=== PATIENT | female | born 1955 | race Caucasian/White ===

== ENCOUNTER → 2018-04-30 07:35 | Outpatient (CLI) | payer OTHER, SELFPAY ==
--- NOTE | 2018-04-30 07:35 | DT_ITS ---
This patient was seen during an EMR downtime April 27, 2018 - May 04, 2018. This patient may have a combination of paper and electronic documentation or all paper documentation. All documentation is viewable within the e-chart portion of Healthcare IT for each patient visit.
[2018-05-05 01:39] LABS: ALB/GLOB Ratio 1.1 RATIO (0.9-2.4); Albumin, Serum 3.8 g/dL (3.2-5.0); BUN 19 mg/dL (7-18); BUN/Creat Ratio 23.8 RATIO (10-20); EST Glomerular Filtration Rate 78 mL/min (>60); Est Glom Filt Rate - Afr Amer 95 mL/min (>60); Globulin 3.6 g/dL (2.2-4.2); Glucose 94 mg/dL (74-106); Protein, Total 7.4 g/dL (6.4-8.2)
[2018-05-05 01:40] LABS: AST(SGOT) 22 U/L (15-37); Alanine Aminotransfer ALT/SGPT 35 U/L (13-56); Alkaline Phosphatase 73 U/L (45-117); Anion Gap 9 (5-15); Calcium,Total 9.3 mg/dL (8.5-10.1); Chloride 107 mmol/L (98-107); Potassium 4.2 mmol/L (3.5-5.1); Sodium Level 143 mmol/L (136-145)
[2018-05-05 05:01] LABS: Basophil% 0.4 % (0-1); Eosinophils% 1.7 % (0-5); Hematocrit 45.6 % (37-47); Hemoglobin 15.3 g/dl (12.0-15.0); Lymphocyte % 30.2 % (19-41); Mean Corp Hgb Conc 33.6 g/gl (32-36); Mean Corpuscular Hgb 31.7 pg (27.0-32.0); Mean Corpuscular Volume 94.4 fL (81-99); Mean Platelet Vol. 11.3 fl (6.2-12.0); Monocyte% 8.1 % (0-10); Neutrophil % 59.5 % (47-70); POSITIVE COUNT NO; POSITIVE DIFFERENTIAL NO; POSITIVE MORPHOLOGY NO; Platelet Count 233 K/mm3 (150-450); RBC Distribution Width CV 12.8 % (11.6-14.6); RBC Distribution Width SD 42.8 fl (35.1-43.9); Red Blood Count 4.83 M/mm3 (4.2-5.4); White Blood Count 6.9 K/mm3 (4.4-11.0)
[2018-05-05 05:02] LABS: Absolute Lymphocyte Count 2.08 X10^3/ul (0.83-4.51); Absolute Neutrophil Count 4.1 X10^3/uL (2.0-7.7); Basophil# 0.03 X10^3/uL; Eosinophil# 0.12 X10^3/uL; Lymphocyte # 2.08 X10^3/ul (4.0); Monocyte# 0.56 X10^3/uL; Neutrophil # 4.09 X10^3/uL (2.7-7.7)
== END ==
PROVIDERS: Family Provider Internal Medicine; PCP Internal Medicine Rheumatology; Visit Provider Internal Medicine Rheumatology
DX: R69 Illness, unspecified (principal)
CPT/HCPCS: 80053; 85025

== ENCOUNTER 2018-05-20 10:01 | Day surgery (SDC) | payer OTHER, SELFPAY ==
[2018-05-01 14:57] LABS: White Blood Count 5.9 K/mm3 (4.4-11.0)
--- NOTE | 2018-05-01 14:57 | SDCEKG_ITS ---
Test Reason : Blood Pressure : / mmHG Vent. Rate : 079 BPM Atrial Rate : 079 BPM P-R Int : 166 ms QRS Dur : 090 ms QT Int : 398 ms P-R-T Axes : 046 019 030 degrees QTc Int : 456 ms Sinus rhythm with frequent Premature ventricular complexes in a pattern of bigeminy Biatrial enlargement Abnormal ECG Confirmed by REBECA GILMORE, MAREN ([id number]), metropolitan editor ISIDRA HURST ([id number] on 05/06/2018 6:26:23 PM Referred By: READER BUNNY Confirmed By:MAREN JOSE MD
[2018-05-01 14:58] LABS: Absolute Lymphocyte Count 1.69 X10^3/ul (0.83-4.51); Absolute Neutrophil Count 3.6 X10^3/uL (2.0-7.7); Basophil# 0.02 X10^3/uL; Basophil% 0.3 % (0-1); Eosinophil# 0.08 X10^3/uL; Eosinophils% 1.4 % (0-5); Hematocrit 43.6 % (37-47); Hemoglobin 14.6 g/dl (12.0-15.0); Lymphocyte # 1.69 X10^3/ul (4.0); Lymphocyte % 28.7 % (19-41); Mean Corp Hgb Conc 33.5 g/gl (32-36); Mean Corpuscular Hgb 31.3 pg (27.0-32.0); Mean Corpuscular Volume 93.6 fL (81-99); Mean Platelet Vol. 10.9 fl (6.2-12.0); Monocyte# 0.47 X10^3/uL; Neutrophil # 3.61 X10^3/uL (2.7-7.7); Neutrophil % 61.4 % (47-70); POSITIVE COUNT NO; POSITIVE DIFFERENTIAL NO; POSITIVE MORPHOLOGY NO; Platelet Count 225 K/mm3 (150-450); RBC Distribution Width CV 12.8 % (11.6-14.6); RBC Distribution Width SD 42.9 fl (35.1-43.9); Red Blood Count 4.66 M/mm3 (4.2-5.4)
[2018-05-01 15:39] LABS: Anion Gap 7 (5-15); BUN 18 mg/dL (7-18); BUN/Creat Ratio 23.7 RATIO (10-20); Calcium,Total 9.6 mg/dL (8.5-10.1); Chloride 107 mmol/L (98-107); Creatinine, Serum 0.76 mg/dL (0.55-1.02); EST Glomerular Filtration Rate 83 mL/min (>60); Est Glom Filt Rate - Afr Amer 101 mL/min (>60); Glucose 80 mg/dL (74-106); Potassium 4.1 mmol/L (3.5-5.1); Sodium Level 144 mmol/L (136-145)
[2018-05-20] VITALS (11 sets, daily range): BP systolic 107–174; BP diastolic 59–90; PULSE 69–84; RESP 15–18; TEMP 36.6–36.9; O2SAT 96–100; BMI 35.4
[2018-05-20] MEDS: Acetaminophen 500 MG Tablet 1000 MG PO ×2 (10:45→21:48)
[2018-05-20] MEDS: oxyCODONE HCl Cr 10 MG Tablet PO (10:46)
--- NOTE | 2018-05-20 11:06 | PCM.OPRPT ---
Report of Operation Date of Procedure: 05/20/18 Pre-Operative Diagnosis: Right knee primary osteoarthritis Post-Operative Diagnosis: Right knee primary osteoarthritis Surgery/Procedure Performed:: Right total knee replacement Description of Surgical Findings:: Well-balanced knee with good patella tracking pinball machine repairer: Alphonse Kaplan Type of Anesthesia:: Spinal Anesthesiologist: Fidel Harper Special Medications: 2 g Ancef, 1 g TXA at incision, 1 g TXA closure, 10 mg Decadron, joint cocktail (5 mg Duramorph, 30 mL of 0.5% Ropivicaine, 1000 units of epinephrine, 30 mg of Toradol) Specimen's removed: Bony cuts Estimated Blood Loss (mL): 50 Fluids Replaced: 1500 ml crystalloid Description of Procedure: Implants used: 1. [place] size 3 press-fit triathlon cruciate retaining distal femoral component 2. [place] size 4 press-fit tibial baseplate 3. [place] X3 9 mm CS polyethylene 4. [place] X3 32 mm asymmetric patella Brief history operative indications: 62-year-old F with history of R knee osteoarthritis with radiographic findings with loss of joint space, osteophyte formation and subchondral sclerosis. Failed conservative measures as mentioned in the H&P. Discussion of total knee arthroplasty as well as risk and benefits were discussed the patient including but not limited to blood loss, DVTs, PEs, neurovascular damage, general risk of anesthesia including loss of life, and stiffness or instability were discussed with patient. Patient demonstrated understanding and was able to sign informed consent. Procedure: On the date of procedure patient's R lower extremity was marked in the preoperative area. The patient was then taken back to the operating room where the patient was placed on the table in the supine position. All bony prominences were identified a well-padded. Anesthesia assumed control of the C-spine and airway and remained controlled throughout the remainder of the procedure. A tourniquet was placed on the R upper thigh and the leg was prepped in a sterile fashion. The surgeon then scrubbed at this time. Upon reentering the room R lower extremity was draped in a standard orthopedic fashion. A timeout was then called and everyone agreed upon the side, the site, the procedure to be performed, patient's identity and antibiotics given. Esmarch bandage was used to exsanguinate the extremity and the tourniquet was placed up to 250 mmHg with the knee in flexion. A midline skin incision was made and sharp dissection was taken down through skin subcutaneous tissue and fat. The standard medial parapatellar incision was made and the patella was subluxed laterally. The standard deep MCL release was done and the fat pad was resected. Next our attention was directed to the femur. Navigation pins were placed, navigation was registered. The distal femoral cutting block was pinned into place and 9 mm of distal femur resection was completed. The distal femoral cut was verified with navigation. The knee was then placed in deep flexion in the standard [place] sizing guide was used to place the femoral component in 3? external rotation based on the posterior condyles. A size 3 4-in-1 cutting block was selected and pinned into place. The anterior cut was then made and checked for notching. The subsequent anterior chamfer cuts, posterior condylar cuts and posterior chamfer cuts were made while ensuring the MCL and LCL were protected. Our attention was then turned to the tibia where the navigation pins were placed, navigation was registered. [place] tibial cutting guide was used to make the appropriate tibial cut 90 degrees from the mechanical axis. Navigation was then used to verify the cut. A size 4 tibial base plate was selected. the knee was flexed to 90 degrees and the soft tissues and posterior osteophytes were removed from the joint. 40 cc of the periarticular injection was injected into the posterior medial corner of the joint. The appropriate trials were then placed on the femur and tibia. A trial polyethylene was trialed to ensure proper balancing and stability of the knee. Patella tracking, was then verified and corrected appropriately as needed. The appropriate tibial internal rotation was then marked with a bovie. Our attention was then directed to the patella. The patella was everted and a flat resection was made. The lug holes were drilled and the patella trial was placed. Patellar tracking was checked and deemed appropriate. Once we were happy lug holes were drilled for the femur and trial components were removed. Cement was mixed at this time and the tourniquet was let down the tibia was subluxed and pinned into place and the keel was punched and the canal was reamed. Final components were verified and opened, and cement was mixed in a vacuum. [place] Simplex cement was used. The wound was copiously irrigated with normal saline. When the cement was ready the press-fit components were impacted into place starting with the tibia, femur and finally the patella cemented into place. The trial poly component was placed and the knee was placed in full extension. All excess cement was removed in the process. Once the cement had cured the tracking, alignment and balance were verified and a size 9 mm polyethylene component was placed. Once the final components were placed the wound was copiously irrigated with normal saline solution and the periarticular injection was given. The wound was closed in a layer amos fashion using #1 vicryl interrupted sutures for the arthrotomy, 2-0 interrupted Vicryl suture for the subcuticular layer and phi for final skin closure. A sterile compressive dressing was then placed. The patient was then awakened from anesthesia, transferred to the rzenda and transferred to the PACU for recovery. Post op plan DVT ppx: ASA 81mg, thigh high compression stockings Follow up: in office in 2 weeks for wound check PT: to start POD #0 at hospital, outpatient PT should be arranged. My physician baking assistant was a vital part of this case. He was important in appropriate retraction during the case, and protection of soft tissues during bony cuts. His intimate knowledge of the case and my steps aided in safe and expedient completion of the procedure as well as appropriate position of the leg during the case. He was also vital in assisting with closure under my direct supervision. Grafts/Implants Used: [place] triathlon press-fit total knee - Complications None - Admit VTE Documentation VTE Present on Admission: No VTE Mechan Device Prophylaxis: SCD's, Thigh High ABDULLAHI Hose VTE Pharm Prophylaxis ordered?: Yes
--- NOTE | 2018-05-20 11:11 | OP.PCM_ITS ---
Report of Operation Date of Procedure: 05/20/18 Pre-Operative Diagnosis: Right knee primary osteoarthritis Post-Operative Diagnosis: Right knee primary osteoarthritis Surgery/Procedure Performed:: Right total knee replacement Description of Surgical Findings:: Well-balanced knee with good patella tracking polisher hand: Alphonse Kaplan Type of Anesthesia:: Spinal Anesthesiologist: Fidel Harper Special Medications: 2 g Ancef, 1 g TXA at incision, 1 g TXA closure, 10 mg Decadron, joint cocktail (5 mg Duramorph, 30 mL of 0.5% Ropivicaine, 1000 units of epinephrine, 30 mg of Toradol) Specimen's removed: Bony cuts Estimated Blood Loss (mL): 50 Fluids Replaced: 1500 ml crystalloid Description of Procedure: Implants used: 1. [place] size 3 press-fit triathlon cruciate retaining distal femoral component 2. [place] size 4 press-fit tibial baseplate 3. [place] X3 9 mm CS polyethylene 4. [place] X3 32 mm asymmetric patella Brief history operative indications: 62-year-old F with history of R knee osteoarthritis with radiographic findings with loss of joint space, osteophyte formation and subchondral sclerosis. Failed conservative measures as mentioned in the H&P. Discussion of total knee arthroplasty as well as risk and benefits were discussed the patient including but not limited to blood loss, DVTs, PEs, neurovascular damage, general risk of anesthesia including loss of life, and stiffness or instability were discussed with patient. Patient demonstrated understanding and was able to sign informed consent. Procedure: On the date of procedure patient's R lower extremity was marked in the preoperative area. The patient was then taken back to the operating room where the patient was placed on the table in the supine position. All bony prominences were identified a well-padded. Anesthesia assumed control of the C- spine and airway and remained controlled throughout the remainder of the procedure. A tourniquet was placed on the R upper thigh and the leg was prepped in a sterile fashion. The surgeon then scrubbed at this time. Upon reentering the room R lower extremity was draped in a standard orthopedic fashion. A timeout was then called and everyone agreed upon the side, the site, the procedure to be performed, patient's identity and antibiotics given. Esmarch bandage was used to exsanguinate the extremity and the tourniquet was placed up to 250 mmHg with the knee in flexion. A midline skin incision was made and sharp dissection was taken down through skin subcutaneous tissue and fat. The standard medial parapatellar incision was made and the patella was subluxed laterally. The standard deep MCL release was done and the fat pad was resected. Next our attention was directed to the femur. Navigation pins were placed, navigation was registered. The distal femoral cutting block was pinned into place and 9 mm of distal femur resection was completed. The distal femoral cut was verified with navigation. The knee was then placed in deep flexion in the standard [place] sizing guide was used to place the femoral component in 3? external rotation based on the posterior condyles. A size 3 4-in-1 cutting block was selected and pinned into place. The anterior cut was then made and checked for notching. The subsequent anterior chamfer cuts, posterior condylar cuts and posterior chamfer cuts were made while ensuring the MCL and LCL were protected. Our attention was then turned to the tibia where the navigation pins were placed , navigation was registered. Golgi tibial cutting guide was used to make the appropriate tibial cut 90 degrees from the mechanical axis. Navigation was then used to verify the cut. A size 4 tibial base plate was selected. the knee was flexed to 90 degrees and the soft tissues and posterior osteophytes were removed from the joint. 40 cc of the periarticular injection was injected into the posterior medial corner of the joint. The appropriate trials were then placed on the femur and tibia. A trial polyethylene was trialed to ensure proper balancing and stability of the knee. Patella tracking, was then verified and corrected appropriately as needed. The appropriate tibial internal rotation was then marked with a bovie. Our attention was then directed to the patella. The patella was everted and a flat resection was made. The lug holes were drilled and the patella trial was placed. Patellar tracking was checked and deemed appropriate. Once we were happy lug holes were drilled for the femur and trial components were removed. Cement was mixed at this time and the tourniquet was let down the tibia was subluxed and pinned into place and the keel was punched and the canal was reamed. Final components were verified and opened, and cement was mixed in a vacuum. [place] Simplex cement was used. The wound was copiously irrigated with normal saline. When the cement was ready the press-fit components were impacted into place starting with the tibia, femur and finally the patella cemented into place. The trial poly component was placed and the knee was placed in full extension. All excess cement was removed in the process. Once the cement had cured the tracking , alignment and balance were verified and a size 9 mm polyethylene component was placed. Once the final components were placed the wound was copiously irrigated with normal saline solution and the periarticular injection was given. The wound was closed in a layer amos fashion using #1 vicryl interrupted sutures for the arthrotomy, 2-0 interrupted Vicryl suture for the subcuticular layer and phi for final skin closure. A sterile compressive dressing was then placed. The patient was then awakened from anesthesia, transferred to the rstryker and transferred to the PACU for recovery. Post op plan DVT ppx: ASA 81mg, thigh high compression stockings Follow up: in office in 2 weeks for wound check PT: to start POD #0 at hospital, outpatient PT should be arranged. My physician early childhood teacher assistant was a vital part of this case. He was important in appropriate retraction during the case, and protection of soft tissues during bony cuts. His intimate knowledge of the case and my steps aided in safe and expedient completion of the procedure as well as appropriate position of the leg during the case. He was also vital in assisting with closure under my direct supervision. Grafts/Implants Used: [place] triathlon press-fit total knee - Complications None - Admit VTE Documentation VTE Present on Admission: No VTE Mechan Device Prophylaxis: SCD's, Thigh High ABDULLAHI Hose VTE Pharm Prophylaxis ordered?: Yes
[2018-05-20] MEDS: Cefazolin 2 GM in 0.9% Normal Saline 100 ML IV (13:25)
--- NOTE | 2018-05-20 15:10 | RAD_ITS ---
STUDY: X-RAY - RIGHT KNEE REASON FOR EXAM: Female, 62 years old. Postop. TECHNIQUE: view(s) of the knee. COMPARISON: None. FINDINGS: There is a total knee replacement. The prosthetic components are intact and articulate normally with each other. There is no evidence of loosening from the underlying bone. There is no evidence of osseous fracture or destructive osseous pathology. There is air and swelling in the anterior soft tissues with midline skin clips. RAD/Knee 1 or 2 Views IMPRESSION: Status post right TKA. Electronically Signed: Aristeo Damon DO at 15:27 EDT Tel [phone], Service support ,
[2018-05-20] MEDS: 0.9% Normal Saline 1,000 ML 999 ML IV (18:19)
[2018-05-20] MEDS: Aspirin 325 MG Tablet PO (18:19)
[2018-05-20] MEDS: 0.9% Normal Saline 1,000 ML 125 ML IV (19:40)
[2018-05-20] MEDS: Meloxicam 7.5 MG Tablet PO (21:48)
[2018-05-20] MEDS: Cefazolin 1 GM/50 ML BAG IV (21:48)
[2018-05-20] MEDS: Senna/Docusate Sodium 1 Tablet 2 TABLET PO (21:48)
[2018-05-20] MEDS: oxyCODONE 5 MG Tablet PO (23:39)
[2018-05-21 02:46] VITALS: BP 142/63; PULSE 78; RESP 16; TEMP 36.9; O2SAT 98
[2018-05-21] MEDS: Ketorolac 15 MG/ML Vial IV (02:48)
[2018-05-21] MEDS: Cefazolin 1 GM/50 ML BAG IV (05:43)
[2018-05-21] MEDS: Acetaminophen 500 MG Tablet 1000 MG PO ×2 (05:43→14:01)
[2018-05-21] MEDS: oxyCODONE 5 MG Tablet PO ×4 (05:43→14:54)
[2018-05-21] MEDS: 0.9% NaCl Peripheral Flush Adult/Peds IV (06:23)
[2018-05-21 06:36] LABS: Hematocrit 38.1 % (37-47); Hemoglobin 12.7 g/dl (12.0-15.0); Mean Corp Hgb Conc 33.3 g/gl (32-36); Mean Corpuscular Hgb 31.2 pg (27.0-32.0); Mean Corpuscular Volume 93.6 fL (81-99); Mean Platelet Vol. 10.6 fl (6.2-12.0); Platelet Count 184 K/mm3 (150-450); RBC Distribution Width CV 12.2 % (11.6-14.6); RBC Distribution Width SD 41.5 fl (35.1-43.9); Red Blood Count 4.07 M/mm3 (4.2-5.4); White Blood Count 9.9 K/mm3 (4.4-11.0)
[2018-05-21 06:44] LABS: Scan Indicated on CBC? Y/N NO
[2018-05-21 06:47] LABS: Anion Gap 7 (5-15); BUN 8 mg/dL (7-18); BUN/Creat Ratio 13.4 RATIO (10-20); Calcium,Total 8.2 mg/dL (8.5-10.1); Chloride 106 mmol/L (98-107); EST Glomerular Filtration Rate 109 mL/min (>60); Est Glom Filt Rate - Afr Amer 132 mL/min (>60); Estimated Creatinine Clearance 82.48 ml/min; Glucose 122 mg/dL (74-106); Potassium 4.2 mmol/L (3.5-5.1); Sodium Level 139 mmol/L (136-145)
[2018-05-21] MEDS: Famotidine 20 MG Tablet PO (07:57)
[2018-05-21] MEDS: Meloxicam 7.5 MG Tablet PO (07:57)
[2018-05-21] MEDS: Senna/Docusate Sodium 1 Tablet 2 TABLET PO (07:57)
[2018-05-21 08:00] VITALS: BP 112/69; PULSE 79; RESP 16; TEMP 36.8; O2SAT 97
[2018-05-21] MEDS: Aspirin 81 MG TAB.CHEW PO (08:01)
--- NOTE | 2018-05-21 08:26 | PCM.PN.ORT ---
Subjective: The patient was sitting in bedside chair upon examination. Patient denies any chest pain, shortness of breath, dizziness, lightheadedness, nausea or vomiting, or calf pain. Pain is controlled on medications. No adverse overnight events. Overall patient is doing well. Patient does wish to try to go home today.. Objective: Vital signs stable and afebrile. Patient is able to plantarflex and dorsiflex actively. Sensation is intact to light touch to saphenous, sural, superficial and deep peroneal, and tibial distribution. Dressing is clean dry and intact. Negative Homans bilaterally, negative signs and symptoms of DVT. - Physical Exam General: Alert, Oriented x3, Cooperative, No apparent distress Vital Signs Temp Pulse Resp BP Pulse Ox 98.4 F 78 16 142/63 H 98 05/21/18 02:46 05/21/18 02:46 05/21/18 02:46 05/21/18 02:46 05/21/18 02:46 Oxygen Flow Rate (L/min) 2 Oxygen Delivery Method Room Air Weight: 90.718 kg Body Mass Index (BMI) 35.4 Intake and Output for Last 24 Hours 05/19/18 05/20/18 05/21/18 23:59 23:59 23:59 Intake Total 3616 / 3616 1365 / 1365 Output Total 1550 / 1550 Balance 2066 / 2066 1365 / 1365 Laboratory Tests Past 24 Hrs 05/21/18 05/21/18 05:50 05:50 WBC 9.9 RBC 4.07 L Hgb 12.7 Hct 38.1 MCV 93.6 MCH 31.2 MCHC 33.3 RDW 12.2 RDW Differential 41.5 Plt Count 184 MPV 10.6 Sodium 139 Potassium 4.2 Chloride 106 Carbon Dioxide 26.0 Anion Gap 7 BUN 8 Creatinine 0.60 Estim Creat Clear Calc 82.48 Est GFR (MDRD) Af Amer 132 Est GFR (MDRD) Non-Af 109 BUN/Creatinine Ratio 13.4 Glucose 122 H Calcium 8.2 L Medical Necessity - Tobacco Use Smoking Status: Never smoker Assessment/Plan 1. S/P right total knee arthroplasty POD #1 2. Continue Pain Medications: Tylenol and OxyIR 3. DVT Prophylaxis: Aspirin 81 mg twice daily 4. PT/OT: Weightbearing as tolerated 5. H & H: 12.7/38.1, asymptomatic 6. Encouraged Incentive Spirometry 7. Disposition: Plan will be for possible discharge home this afternoon. Patient will follow-up per postop instructions. Patient would like to switch her physical therapy to [facility] due to transportation. Prescriptions will be E scribed to [facility].
--- NOTE | 2018-05-21 08:39 | PCM.DC.TKR ---
Discharge Diet: No Restrictions Discharge Activity: May Not Drive May shower in (days): 1 - Turned dressing away from water Ice area for (Minutes): 20 - every hour while awake. Weight Bearing Status: Weight bearing as tolerated Elevate: Operative Extremity Additional Activity Instructions:: Wear elastic stockings for 2 weeks after your surgery. Call your doctor if your incision/area has: Continuous Slow Oozing, Sudden Increased Bleeding, Increased Pain/ Swelling, Increased Redness, Foul Smelling Discharge Call your doctor if you observe: Fever of 101 or Higher, Coldness, Increased Pain, Numbness or Tingling, Change in Color, Calf discomfort, Uncontrolled pain Remove Dressing in (days):: 4 - Okay to remove dressing on May 25, 2018 Additional Instructions: Follow [facility] postop instructions Do not take Plaquenil until follow-up and incision check Allergies/Adverse Reactions: Allergies Sulfa (Sulfonamide Antibiotics) Allergy (Verified 05/19/18 11:21) Unknown Medications to take at Discharge Calcium/D3/Mag Ox/Precision Honing Machine Operator/Myke/Zn [Caltrate+D3 Plus Mineral Minis] 1 each PO DAILY 05/20/18 Folic Acid 1 mg PO DAILY@0800 05/20/18 Lisinopril [Zestril] 20 mg PO DAILY 05/20/18 Methotrexate 7.5 mg PO Q7D 05/20/18 Multivitamin,Therapeutic [Thera] 1 each PO DAILY 05/20/18 Acetaminophen [Tylenol] 1,000 mg PO Q8 #90 tab 05/21/18 Aspirin [Aspirin, Baby] 81 mg PO BIDCM #60 tab.ec 05/21/18 Famotidine [Pepcid] 20 mg PO DAILY #30 tab 05/21/18 Meloxicam [Mobic] 7.5 mg PO BID #60 tab 05/21/18 Oxycodone [Oxyir] 5 - 10 mg PO Q4H PRN PRN 7 Days #80 tablet 05/21/18 Senna/Docusate Sodium [Senokot-S] 2 tab PO BID #20 tab 05/21/18 The following prescriptions were given: Oxycodone [Oxyir] 5 - 10 mg PO Q4H PRN PRN 7 Days #80 tablet PRN Reason: Mod-Severe Pain (4-09/02) Acetaminophen [Tylenol] 1,000 mg PO Q8 #90 tab Famotidine [Pepcid] 20 mg PO DAILY #30 tab Aspirin [Aspirin, Baby] 81 mg PO BIDCM #60 tab.ec Meloxicam [Mobic] 7.5 mg PO BID #60 tab Senna/Docusate Sodium [Senokot-S] 2 tab PO BID #20 tab Primary Care Physician: Анна Quintero MD [Primary Care Provider] - Please Follow Up With: Alphonse Kaplan PA-C When: 06/03/18 @ 10:30 am
--- NOTE | 2018-05-21 09:08 | PCA ---
pt in therapy
--- NOTE | 2018-05-21 10:34 | CASEMGMT ---
RN CHIKI NOTE: Introduced Role of CM to pt. Pt voiced concern re: transportation to [facility] for PT and stated she would prefer to be seen @ [facility] d/t they have transportation services. CM arranged for appt for PT for pt @ [facility] on May 25 @ 1100 and cancelled pt's appt @ [facility]. CM asked [facility] to fax PT script to [email or web address]. Pt informed of upcoming appt @ [facility] and made aware appt @ [facility] has been cancelled. Pt agreeable to set up own transportation for 1st week. Discharge appt sheet given to patient. Maninder PANDEYN RN CM
[2018-05-21 14:00] VITALS: BP 144/72; PULSE 91; RESP 18; TEMP 36.9; O2SAT 99
== END 2018-05-21 16:10 | disposition home or self-care (01) ==
LOC: SDC 10:02 → AC 10:02 → MS3 14:11
PROVIDERS: Family Provider Internal Medicine; PCP Internal Medicine Rheumatology; Visit Provider Specialist
PROC: (CPT 27447; principal; 2018-05-20 13:00)
DX: M17.11 Unilateral primary osteoarthritis, right knee (principal); I10 Essential (primary) hypertension; M06.9 Rheumatoid arthritis, unspecified; L40.9 Psoriasis, unspecified; G47.30 Sleep apnea, unspecified; K21.9 Gastro-esophageal reflux disease without esophagitis; E66.3 Overweight; Z68.36 Body mass index [BMI] 36.0-36.9, adult; Z79.899 Other long term (current) drug therapy; Z79.82 Long term (current) use of aspirin; Z78.0 Asymptomatic menopausal state
CPT/HCPCS: 01402; 27447; 64447; 36415; 73560; 80048; 85025; 85027; 87081; 93005; 97116; 97162; 97165; 97530; 97535; 99251; C1776; J7030; J7120; A4216; G0463

== ENCOUNTER 2018-07-24 08:00 | Outpatient (RCR) | payer OTHER, SELFPAY ==
--- NOTE | 2018-05-25 11:51 | HP.PTEVAL_ITS ---
Patient's Visit Information NINA GANDHI is a 62 year old F referred to Physical Therapy by Elliott Dowell MD with a diagnosis of R TKA. Date of Evaluation: 05/25/18 Physical Therapist: Antoinette Mcqueen PT - Visit Plan Frequency: 2x /Week Duration: 4 Weeks Plan: Therapeutic exercises and activities following TKA protocol to target BLE strength, R knee ROM, endurance and balance. Gait training to decrease AD use and improve ambulation. Incorporate HEP to promote maintainence and independence. Modalities and manual as needed to decrease pain and increase ROM. - Subjective Subjective: Patient presents in therapy today with chief complaint of R knee pain secondary to TKA on 05/20/18. Patient is ambulating with FWW since surgery and getting a cane when she is ready. She was independently ambulating prior to surgery. She reports no numbness of tingling in BLE. States that she has been taking oxycodine, extra strength tylenol and icing multiple times a day (~12 hours) to help relieve pain and reduce swelling. States the most uncomfortable part is the pulling sensation. She is having difficulty walking, climbing stairs , stepping in and out of tub and lifting leg up onto bed. She has her to help with activities. Reports no issues with incisions except excessive bleeding and yellow discharge in one area which has stopped and she contacted doctor's nurse about it. - Pain right knee Pain Intensity (Out of 10): 4 Pain Intensity Range: 3, 6 Comment: worsen with activities - Objective Posture: Sitting upright in chair unsupported with weight shifted toward LLE and right knee extended forward. Appearance: Moderate swelling of right knee ( 21 in compared to left 19 inch circumference); Bandages intact and covered with compression socks; Mild swelling of right ankle. Palpation: Tenderness to palpation around right knee anteriorly and posteriorly; Non-pitting edema throughout. Strength: RLE grossly 3/5 and not formally tested seconday to surgery; LLE grossly 4+/5 strength except hip abduction 4/5, hip extension 4/5, knee flexion 4-/5. ROM: Left knee 0-125* and Right knee 10-35*. Flexibility: Moderate tightness of bilateral hamstrings. Gait: Patient ambulating with step to gait left foot leading with FWW. Right knee extension with hip hike and circumduction for foot clearance. Stairs: Patient ascends 5 stairs using a step to pattern left leading with handrail support and step to pattern down right foot leading with handrail support. Balance: B modified tandem stance 20 seconds with moderate sway and favoring toward LLE. - Goals Goal 1:: Patient will increase RLE to match LLE gross strength for improved performance with functional activities. Goal Time Frame: 6-8 Weeks Goal 2:: Patient will display good dynamic standing balance with activities to decrease risk of fall Goal Time Frame: 6-8 Weeks Goal 3:: Patient will increase R knee ROM to match L knee for improved mobility Goal Time Frame: 6-8 Weeks Goal 4:: Patient will ambulate with a heel/toe foot pattern without AD for 25ft. displaying good control without compensation. Goal Time Frame: 6-8 Weeks Goal 5:: Patient will tolerate therapeutic exercises and activities without an increase in R knee pain. Goal Time Frame: 6-8 Weeks - Rehabilitation Potential Physical Therapy Diagnosis: Muscle Weakness, Impaired Gait, Limited ROM Rehabilitation Potential: Good - Anticipated Interventions Patient/Client Instruction: Educate patient on: Condition, Plan of Care For the Purpose of:: To decrease pain, To increase ROM, To improve muscle performance and motor function, To improve ability to perform ADL's, To improve ability of physical actions for home/community/work/leisure, To improve gait and locomotor functions, To improve endurance, To improve balance, To improve safety with gait Therapeutic Exercise to Include: Strength training, Endurance training, Balance training, Body mechanics, Flexibilty training, Gait and locomotor training, Neuromotor development, Passive ROM, Active ROM For the Purpose of:: To increase ROM, To improve muscle performance and motor function, To improve ability to perform ADL's, To improve performance and independence with ADL's, To improve ability of physical actions for home/ community/work/leisure, To improve gait and locomotor functions, To improve balance, To improve safety with gait Functional Training to Include: ADL Training, Gait training For the Purpose of:: To improve muscle performance and motor function, To improve ability to perform ADL's, To improve ability of physical actions for home/community/work/leisure, To improve gait and locomotor functions, To improve safety with gait Comment: massage not covered For the Purpose of:: To decrease pain, To increase ROM, To decrease soft tissue restriction, To increase flexibility/ROM Iontophoresis (with Dexamethozone, with Acetic acid): No For the Purpose of:: To decrease pain, To increase ROM, To increase flexibility/ ROM, To improve endurance Thank you for the opportunity to evaluate your patient. For Medicare and Medicare HMO plans, please review the plan of care and approve it. It will need to be FAXED BACK to us at [phone] for Medicare purposes. Please let me know if there are questions or concerns regarding this plan of care. Physician Signature: Date:
--- NOTE | 2018-06-24 09:53 | HP.PTREVAL_ITS ---
Elliott Dowell MD, It has been my pleasure to treat NINA GANDHI over the last 10 visits for R TKA. Please see the progress note below for an update on the physical therapy plan of care! Subjective: Pippa reports good days and bad days. Is walking without an AD- still has swelling and stiffness. Going down stairs is the scariest thing- uses 2 HR. Pain level at the worst 6/10 at the end of the day. Soreness and tightness at all times. Wants to be able to walk long distance and stairs. Objective/Function: Posture: FH, RS. Gait: slightly antalgic- decreased stance on the right LE- poor heel/toe pattern. HR/TR: WNL- discomfor with TR. SLS: 3 sec then lob. Stairs:asc/Desc 8'' recip with 2 Hr and uses ue A for pull. rom : 5-108 degrees. Incision: healed well- no open areas. strength: Ankle: 5/5, Knee: 4+/5 Hip: 4+/5 throughout Plan Plan: Cont with POC 2x a week for 4 weeks. Goals Goal 1:: Patient will increase RLE to match LLE gross strength for improved performance with functional activities. Goal Time Frame: 6-8 Weeks Goal Progress: Progressing Goal 2:: Patient will display good dynamic standing balance with activities to decrease risk of fall Goal Time Frame: 6-8 Weeks Goal Progress: Progressing Goal 3:: Patient will increase R knee ROM to match L knee for improved mobility Goal Time Frame: 6-8 Weeks Goal Progress: Progressing Goal 4:: Patient will ambulate with a heel/toe foot pattern without AD for 25ft. displaying good control without compensation. Goal Time Frame: 6-8 Weeks Goal Progress: Progressing Goal 5:: Patient will tolerate therapeutic exercises and activities without an increase in R knee pain. Goal Time Frame: 6-8 Weeks Goal Progress: Progressing Anticipated Interventions Patient/Client Instruction: Educate patient on: Condition, Plan of Care For the Purpose of:: To decrease pain, To increase ROM, To improve muscle performance and motor function, To improve ability to perform ADL's, To improve ability of physical actions for home/community/work/leisure, To improve gait and locomotor functions, To improve endurance, To improve balance, To improve safety with gait Therapeutic Exercise to Include: Strength training, Endurance training, Balance training, Body mechanics, Flexibilty training, Gait and locomotor training, Neuromotor development, Passive ROM, Active ROM For the Purpose of:: To increase ROM, To improve muscle performance and motor function, To improve ability to perform ADL's, To improve performance and independence with ADL's, To improve ability of physical actions for home/ community/work/leisure, To improve gait and locomotor functions, To improve balance, To improve safety with gait Functional Training to Include: ADL Training, Gait training For the Purpose of:: To improve muscle performance and motor function, To improve ability to perform ADL's, To improve ability of physical actions for home/community/work/leisure, To improve gait and locomotor functions, To improve safety with gait Comment: massage not covered For the Purpose of:: To decrease pain, To increase ROM, To decrease soft tissue restriction, To increase flexibility/ROM Iontophoresis (with Dexamethozone, with Acetic acid): No For the Purpose of:: To decrease pain, To increase ROM, To increase flexibility/ ROM, To improve endurance Please do not hesitate to contact me at [phone] by phone or Fax: if you have questions or concerns regarding this new plan of care! Sincerely, Joanie Handley
--- NOTE | 2018-07-24 08:30 | HP.PTDCSUM ---
HP - PT D/C Summary It has been my pleasure to treat NINA GANDHI under orders from Elliott Dowell MD, for the diagnosis of R TKA for a total of 18 visit(s). Discharge Date: Please see the following information for a summary of their discharge status. - Subjective Subjective: Patient reports that their is a catch in it- not pain ful odd feeling. Catches on the back- more noticeable when its tight. Went back to work last week-1/2 days and full go on Friday. Sitting most of the day but gets up and walks as needed. Sleep: Sleep apnea- but its not her knee that wakes her up. No problems traversing terrain but at the end of the day when it gets tight its a little slower. Last time she had actualy pain was awhile ago. Aleve sometimes but nothing more. Has a pass to the [employer]- and plans to continue walking. - Pain right knee Pain Intensity (Out of 10): 0 - Overall Improvement % Improvement: 80 - Objective Objective/Function: Posture: good throughout treatment session. Gait: no deviation noted. Stairs: asc/desc 1 HR no deviation- no HR mild loss of balance x1 and decreased control with descent. HR/TR: wnl able to complete with no UE A. SLS: 8 seconds then LOB. Palpation: not tender. Incision well healed- no s/s of infection- no adhesions. Strength: Ankle: 5/5, Knee: 4+/5, Hip: 4+/5. ROM: 5-100 degrees right knee - Goals Goal 1:: Patient will increase RLE to match LLE gross strength for improved performance with functional activities. Goal Progress: Goal Met Goal 2:: Patient will display good dynamic standing balance with activities to decrease risk of fall Goal Progress: Goal Met Goal 3:: Patient will increase R knee ROM to match L knee for improved mobility Goal Progress: Goal Met Goal 4:: Patient will ambulate with a heel/toe foot pattern without AD for 25ft. displaying good control without compensation. Goal Progress: Goal Met Goal 5:: Patient will tolerate therapeutic exercises and activities without an increase in R knee pain. Goal Progress: Goal Met - Plan Plan: Discharge to [facility] - D/C Information If there are questions or concerns regarding this patient's physical therapy, please feel free to call me at [phone]. Thank you for the referral of this patient. Sincerely, Joanie Handley
== END 2018-07-24 08:36 | disposition home or self-care (01) ==
LOC: PT 08:00
PROVIDERS: Family Provider Internal Medicine; PCP Internal Medicine Rheumatology; Visit Provider Specialist
DX: M17.11 Unilateral primary osteoarthritis, right knee (principal)
CPT/HCPCS: 97110; 97140; 97161; 97164; 97530

== ENCOUNTER → 2020-01-25 08:56 | Outpatient (CLI) | payer OTHER, SELFPAY ==
[2020-01-05 15:09] VITALS: BMI 36.1
--- NOTE | 2020-01-25 08:57 | ECHOD_ITS ---
Reason For Study: ARRHYTHMIA Procedure This was a 2D Doppler, Color Flow transthoracic echocardiogram. The study was technically difficult. Due to arrhythmia. Exam performed in department. Left Ventricle Normal LV size. Left ventricular systolic function is normal. The estimated ejection fraction is 65 %. Stage 1 diastolic dysfunction. No regional wall motion abnormalities noted. Right Ventricle Normal RV size. Normal systolic function. Atria Normal left atrium. Normal right atrium. Mitral Valve Normal mitral valve. Tricuspid Valve Normal tricuspid valve. Mild (1+) tricuspid valve insufficiency. Pulmonary artery systolic pressure is 36 mmHg. Aortic Valve Trisinus/trileaflet aortic valve. Mild focal aortic valve calcification. Pulmonic Valve Normal pulmonic valve. Great Vessels Normal aortic root. The pulmonary artery is normal size. Normal inferior vena cava. Pericardium/Pleural No pericardial effusion. MMode/2D Measurements & Calculations LVIDd: 4.6 cm IVSd: 0.97 cm Ao root diam: 3.0 cm LVIDs: 2.8 cm LVPWd: 0.99 cm RVDd: 2.9 cm FS: 39.1 % LAV(MOD-bp): 54.2 ml LA A4 area: 16.5 cm2 LA dimension(2D): 4.4 cm LAV(MOD-bp) Indexed: 27.8 ml/m2 LAV(MOD-sp2): 62.8 ml LAV(MOD-sp4): 47.6 ml RA A4 area: 14.3 cm2 Doppler Measurements & Calculations MV E max cj: 76.7 cm/sec Lat Peak E' Cj: 9.6 cm/sec Med Peak E' Cj: 6.5 cm/sec MV A max cj: 86.4 cm/sec E/E' lat: 8.0 E/E' med: 11.8 MV E/A: 0.89 Ao V2 max: 165.6 cm/sec LV V1 max: 125.4 cm/sec PA V2 max: 88.1 cm/sec Ao max P.0 mmHg LV V1 max P.3 mmHg TR max cj: 284.5 cm/sec TR max P.4 mmHg Interpretation Summary Normal LV size. Left ventricular systolic function is normal. The estimated ejection fraction is 65 %. Stage 1 diastolic dysfunction. Mild focal aortic valve calcification. Mild (1+) tricuspid valve insufficiency. Ordering Physician: José Luis Ko Referring Physician: Hi Retana Performed By: Jessika Callejas RDCS, RVT
== END ==
PROVIDERS: PCP Internal Medicine; Referring Provider Internal Medicine Cardiovascular Disease; Visit Provider Internal Medicine Cardiovascular Disease
DX: I10 Essential (primary) hypertension (principal)
CPT/HCPCS: 93306

== ENCOUNTER → 2020-02-08 07:53 | Outpatient (CLI) | payer OTHER, SELFPAY ==
[2020-01-05 15:09] VITALS: BMI 36.1
--- NOTE | 2020-02-08 07:56 | US_ITS ---
STUDY: ABDOMINAL ULTRASOUND - RIGHT UPPER QUADRANT REASON FOR VISIT: Female, 64 years old ELEVATED LIVER ENZYMES TECHNIQUE: Ultrasound evaluation of the right upper quadrant was performed with real-time and static patel-scale imaging. TECHNICAL QUALITY: Adequate. COMPARISON: None. FINDINGS: Liver: The liver measures 16.4 cm. There is increased echogenicity consistent with fatty infiltration. The bile ducts are within normal limits. There is hepatic color flow. The direction of portal flow is hepatopetal. There is no demonstrated mass lesion. Gallbladder: Normal distended gallbladder. The gallbladder wall measures 4.0 mm. There is a negative sonographic Jett''s sign. There is no pericholecystic fluid. There are no gallstones. 2 small gallbladder polyps are seen. The larger measures 5 mm. Common Bile Duct (C.B.D.): The common bile duct measures 2.7 mm. Pancreas: Normal size of the head, body and tail of the pancreas. There is normal echogenicity of the pancreas. There is no demonstrated pancreatic mass or cyst. Right Kidney: Normal size of the right kidney. The right kidney measures 9.9 cm x 5.1 cm x 4.5 cm. Normal renal cortex. The right cortex measures 1.3 cm. There is no demonstrated renal mass or cyst. There is no right hydronephrosis. US/Liver IMPRESSION: Fatty infiltration of the liver. 2. Small gallbladder polyps. Electronically Signed: Nicola Edmondson, at 9:02 EDT , Service support ,
== END ==
PROVIDERS: PCP Internal Medicine; Referring Provider Internal Medicine Rheumatology; Visit Provider Internal Medicine Rheumatology
DX: R94.5 Abnormal results of liver function studies (principal); L40.59 Other psoriatic arthropathy; L40.8 Other psoriasis; M17.0 Bilateral primary osteoarthritis of knee; K76.0 Fatty (change of) liver, not elsewhere classified; G47.33 Obstructive sleep apnea (adult) (pediatric); Z79.899 Other long term (current) drug therapy
CPT/HCPCS: 76705

== ENCOUNTER → 2020-11-13 06:41 | Outpatient (CLI) | payer OTHER, SELFPAY ==
[2020-11-06 13:26] VITALS: BMI 36.8
--- NOTE | 2020-11-13 09:18 | STRESSREP_ITS ---
Stress Test Report Date: 11-13-2020 Procedure: Exercise tolerance test/imaging study Indications: Shortness of breath/dyspnea on exertion; PVCs Consent: Per the patient Procedure: The patient exercised on a Miguel protocol for 6 minutes and 45 seconds completing Stage II and 45 seconds of Stage III achieving a peak heart rate of 133 bpm (84% predicted maximal heart rate) with a peak blood pressure 180/74 mmHg and a peak MET capacity of 8 METs. The baseline ECG demonstrated sinus rhythm; PVCs (pattern of ventricular bigeminy). The peak exercise ECG demonstrated sinus rhythm with no obvious ECG changes. There were PVCs pretest, during early exercise, less at peak exercise, and then recurring in recovery in the form of occasional PVCs, and transient ventricular bigeminy/trigeminy. The functional capacity was considered average. There was no complaint of chest discomfort during exercise or recovery. The examination was discontinued secondary to dyspnea. Impression: 1. Technically adequate (percent predicted maximal heart rate greater than 85%) exercise tolerance test 2. Peak exercise ECG with continued sinus rhythm with no obvious ECG changes 3. There were PVCs pretest, during early exercise, less at peak exercise, and then recurring in recovery in the form of occasional PVCs, and transient ventricular bigeminy/trigeminy. 4. Nuclear images pending Myocardial perfusion imaging study: Technique: The patient was injected with 11.9 mCi of technetium 99m Cardiolite and subsequently rest SPECT Cardiolite nuclear imaging was obtained in the horizontal long, vertical long, and short axis views. The patient exercised on a Miguel protocol for 6 minutes and 45 seconds completing Stage II and 45 seconds of Stage III achieving a peak heart rate of 133 bpm (84% predicted maximal heart rate) with a peak blood pressure 180/74 mmHg and a peak MET capacity of 8 METs. The patient was injected with 34.2 mCi of technetium 99m Cardiolite and subsequently stress SPECT Cardiolite nuclear imaging was obtained in the horizontal long, vertical long, and short axis views. A gated Cardiolite study at peak stress was obtained. Interpretation: Rest and stress SPECT Cardiolite nuclear imaging status post realignment, normalization, and attenuation correction, demonstrates on the preattenuation correction images the appearance of subtle diminished tracer uptake in the mid towards distal anterior segments at both rest and stress without significant change and on the post attenuation correction images the appearance of subtle di minished tracer uptake in the mid towards distal anterior segments at rest which appear to improve/normalize following stress. There are similar type findings on the resting and stress polar map images. There is end systolic thickening and brightening. The gated Cardiolite study demonstrates myocardial thickening and inward wall motion. The reported LVEF is 68%. Impression: 1. Rest and stress SPECT Cardiolite nuclear imaging demonstrate myocardial perfusion changes which appear compatible with the effects of soft tissue attenuation/artifact potentially more prominent at rest as opposed to stress with no myocardial perfusion changes centered diagnostic for associated stress- induced myocardial ischemia. 2. The gated Cardiolite study reports an LVEF of 68%. This note was generated with [employer] software. It may contain incorrect words, spelling, and punctuation that were not noted in checking the note before signing.
== END ==
PROVIDERS: PCP Internal Medicine; Referring Provider Nurse Practitioner Family; Visit Provider Nurse Practitioner Family
DX: I49.3 Ventricular premature depolarization (principal); R06.02 Shortness of breath
CPT/HCPCS: 78452; 93017; A9500; A4216

== ENCOUNTER → 2023-03-04 | Outpatient (CLI) | payer MEDICARE, OTHER, SELFPAY ==
[2023-03-04 09:20] LABS: AST(SGOT) 37 U/L (15-37); Alanine Aminotransfer ALT/SGPT 41 U/L (13-56); Albumin, Serum 3.7 g/dL (3.2-5.0); Alkaline Phosphatase 74 U/L (45-117); Bilirubin, Direct 0.15 mg/dL (0.00-0.30); Cholesterol 201 mg/dL (200); Globulin 3.4 g/dL (2.2-4.2); High Density Lipoprotein 62 mg/dL; Protein, Total 7.1 g/dL (6.4-8.2); Triglycerides 170 mg/dL; Very Low Density Lipoprotein 34 mg/dL (5-40)
== END | disposition home or self-care (01) ==
LOC: LAB 08:08
PROVIDERS: PCP Internal Medicine; Referring Provider Nurse Practitioner Family; Visit Provider Nurse Practitioner Family
DX: E78.5 Hyperlipidemia, unspecified (principal)
CPT/HCPCS: 36415; 80061; 80076

== ENCOUNTER → 2023-04-01 | Outpatient (CLI) | payer MEDICARE, OTHER, SELFPAY ==
[2023-04-01 08:22] LABS: Absolute Lymphocyte Count 1.83 X10^3/uL (0.83-4.51); Absolute Neutrophil Count 3.5 X10^3/uL (2.0-7.7); Basophil# 0.04 X10^3/uL; Basophil% 0.7 % (0-1); Eosinophil# 0.12 X10^3/uL; Hematocrit 39.6 % (37-47); Hemoglobin 13.1 g/dL (12.0-15.0); Lymphocyte # 1.83 X10^3/ul (0.83-4.51); Lymphocyte % 30.9 % (19-41); Mean Corp Hgb Conc 33.1 g/dL (32-36); Mean Corpuscular Hgb 31.3 pg (27.0-32.0); Mean Corpuscular Volume 94.7 fL (81-99); Mean Platelet Vol. 9.8 fl (6.2-12.0); Monocyte# 0.42 X10^3/uL; Monocyte% 7.1 % (0-10); NRBC Flagged by Analyzer 0 % (0-5); Neutrophil # 3.51 X10^3/uL (2.7-7.7); Neutrophil % 59.1 % (47-70); Platelet Count 240 K/mm3 (150-450); RBC Distribution Width CV 13.1 % (11.6-14.6); RBC Distribution Width SD 44.4 fl (35.1-43.9); Red Blood Count 4.18 M/mm3 (4.2-5.4); White Blood Count 5.9 K/mm3 (4.4-11.0)
[2023-04-01 08:57] LABS: AST(SGOT) 26 U/L (15-37); Alanine Aminotransfer ALT/SGPT 29 U/L (13-56); Albumin, Serum 3.5 g/dL (3.2-5.0); Alkaline Phosphatase 71 U/L (45-117); Anion Gap 5 (5-15); BUN 18 mg/dL (7-18); BUN/Creat Ratio 24.4 RATIO (10-20); Chloride 107 mmol/L (98-107); Creatinine, Serum 0.74 mg/dL (0.55-1.02); EST Glomerular Filtration Rate 84 mL/min (>60); Est Glom Filt Rate - Afr Amer 102 mL/min (>60); Globulin 3.4 g/dL (2.2-4.2); Glucose 108 mg/dL (74-106); Potassium 4.1 mmol/L (3.5-5.1); Protein, Total 6.9 g/dL (6.4-8.2); Sodium Level 141 mmol/L (136-145)
== END | disposition home or self-care (01) ==
LOC: LAB 08:02
PROVIDERS: PCP Internal Medicine; Referring Provider Internal Medicine Rheumatology; Visit Provider Internal Medicine Rheumatology
DX: L40.59 Other psoriatic arthropathy (principal); L40.8 Other psoriasis; K76.0 Fatty (change of) liver, not elsewhere classified; Z79.899 Other long term (current) drug therapy
CPT/HCPCS: 36415; 80053; 85025

== ENCOUNTER → 2023-07-09 | Outpatient (CLI) | payer MEDICARE, OTHER, SELFPAY ==
[2023-07-09 08:44] LABS: Absolute Neutrophil Count 3.5 X10^3/uL (2.0-7.7); Basophil# 0.04 X10^3/uL; Basophil% 0.7 % (0-1); Eosinophil# 0.14 X10^3/uL; Eosinophils% 2.3 % (0-5); Hematocrit 41.7 % (37-47); Hemoglobin 14.1 g/dL (12.0-15.0); Lymphocyte % 28.5 % (19-41); Mean Corp Hgb Conc 33.8 g/dL (32-36); Mean Corpuscular Hgb 31.3 pg (27.0-32.0); Mean Corpuscular Volume 92.7 fL (81-99); Mean Platelet Vol. 10.4 fl (6.2-12.0); Monocyte% 10.1 % (0-10); NRBC Flagged by Analyzer 0 % (0-5); Neutrophil # 3.49 X10^3/uL (2.7-7.7); Neutrophil % 58.4 % (47-70); Platelet Count 252 K/mm3 (150-450); RBC Distribution Width CV 13.1 % (11.6-14.6); RBC Distribution Width SD 44.2 fl (35.1-43.9)
[2023-07-09 09:04] LABS: ALB/GLOB Ratio 1.1 RATIO (0.9-2.4); AST(SGOT) 22 U/L (15-37); Alanine Aminotransfer ALT/SGPT 29 U/L (13-56); Albumin, Serum 3.7 g/dL (3.2-5.0); Alkaline Phosphatase 77 U/L (45-117); Anion Gap 4 (5-15); BUN 19 mg/dL (7-18); BUN/Creat Ratio 25.8 RATIO (10-20); Calcium,Total 8.8 mg/dL (8.5-10.1); Chloride 107 mmol/L (98-107); Creatinine, Serum 0.74 mg/dL (0.55-1.02); EST Glomerular Filtration Rate 84 mL/min (>60); Est Glom Filt Rate - Afr Amer 102 mL/min (>60); Globulin 3.4 g/dL (2.2-4.2); Glucose 99 mg/dL (74-106); Protein, Total 7.1 g/dL (6.4-8.2); Sodium Level 138 mmol/L (136-145)
== END | disposition home or self-care (01) ==
LOC: LAB 08:13
PROVIDERS: PCP Internal Medicine; Referring Provider Internal Medicine Rheumatology; Visit Provider Internal Medicine Rheumatology
DX: L40.59 Other psoriatic arthropathy (principal); L40.8 Other psoriasis; Z79.899 Other long term (current) drug therapy
CPT/HCPCS: 36415; 80053; 85025

== ENCOUNTER → 2023-09-17 | Outpatient (CLI) | payer MEDICARE, OTHER, SELFPAY ==
[2023-09-17 09:54] LABS: AST(SGOT) 22 U/L (15-37); Alanine Aminotransfer ALT/SGPT 31 U/L (13-56); Albumin, Serum 3.5 g/dL (3.2-5.0); Alkaline Phosphatase 79 U/L (45-117); Cholesterol 225 mg/dL (200); Globulin 3.4 g/dL (2.2-4.2); High Density Lipoprotein 58 mg/dL; Protein, Total 6.9 g/dL (6.4-8.2); Triglycerides 265 mg/dL; Very Low Density Lipoprotein 53 mg/dL (5-40)
== END | disposition home or self-care (01) ==
LOC: LAB 08:46
PROVIDERS: PCP Internal Medicine; Referring Provider Nurse Practitioner Family; Visit Provider Nurse Practitioner Family
DX: E78.00 Pure hypercholesterolemia, unspecified (principal)
CPT/HCPCS: 36415; 80061; 80076

== ENCOUNTER → 2023-10-09 | Outpatient (CLI) | payer MEDICARE, OTHER, SELFPAY ==
[2023-10-09 10:12] LABS: Absolute Lymphocyte Count 1.76 X10^3/uL (0.83-4.51); Absolute Neutrophil Count 3.8 X10^3/uL (2.0-7.7); Basophil# 0.04 X10^3/uL; Basophil% 0.6 % (0-1); Eosinophil# 0.17 X10^3/uL; Eosinophils% 2.7 % (0-5); Hematocrit 39.4 % (37-47); Hemoglobin 12.8 g/dL (12.0-15.0); Lymphocyte # 1.76 X10^3/ul (0.83-4.51); Lymphocyte % 27.8 % (19-41); Mean Corp Hgb Conc 32.5 g/dL (32-36); Mean Corpuscular Hgb 29.2 pg (27.0-32.0); Mean Corpuscular Volume 89.7 fL (81-99); Mean Platelet Vol. 10.3 fl (6.2-12.0); Monocyte# 0.56 X10^3/uL; Monocyte% 8.9 % (0-10); NRBC Flagged by Analyzer 0 % (0-5); Neutrophil # 3.77 X10^3/uL (2.7-7.7); Neutrophil % 59.7 % (47-70); Platelet Count 281 K/mm3 (150-450); RBC Distribution Width CV 13.2 % (11.6-14.6); RBC Distribution Width SD 42.7 fl (35.1-43.9); Red Blood Count 4.39 M/mm3 (4.2-5.4); White Blood Count 6.3 K/mm3 (4.4-11.0)
[2023-10-09 10:39] LABS: AST(SGOT) 20 U/L (15-37); Alanine Aminotransfer ALT/SGPT 29 U/L (13-56); Albumin, Serum 3.5 g/dL (3.2-5.0); Alkaline Phosphatase 76 U/L (45-117); Anion Gap 7 (5-15); BUN 22 mg/dL (7-18); BUN/Creat Ratio 31.7 RATIO (10-20); Calcium,Total 8.5 mg/dL (8.5-10.1); Chloride 109 mmol/L (98-107); Creatinine, Serum 0.69 mg/dL (0.55-1.02); EST Glomerular Filtration Rate 90 mL/min (>60); Est Glom Filt Rate - Afr Amer 109 mL/min (>60); Globulin 3.5 g/dL (2.2-4.2); Glucose 104 mg/dL (74-106); Potassium 3.9 mmol/L (3.5-5.1); Sodium Level 142 mmol/L (136-145)
[2023-10-09 10:40] LABS: Vitamin D,25 Hydroxy 45.6 ng/mL
== END | disposition home or self-care (01) ==
LOC: LAB 08:33
PROVIDERS: PCP Internal Medicine; Visit Provider Internal Medicine Rheumatology
DX: L40.59 Other psoriatic arthropathy (principal); L40.8 Other psoriasis; M81.0 Age-related osteoporosis without current pathological fracture; Z79.899 Other long term (current) drug therapy
CPT/HCPCS: 36415; 80053; 82306; 85025

== ENCOUNTER → 2024-01-05 | Outpatient (CLI) | payer MEDICARE, OTHER, SELFPAY ==
[2024-01-05 10:10] LABS: Absolute Lymphocyte Count 1.87 X10^3/uL (0.83-4.51); Absolute Neutrophil Count 3.6 X10^3/uL (2.0-7.7); Basophil# 0.05 X10^3/uL; Basophil% 0.8 % (0-1); Eosinophil# 0.13 X10^3/uL; Eosinophils% 2.1 % (0-5); Hematocrit 39.5 % (37-47); Hemoglobin 12.7 g/dL (12.0-15.0); Lymphocyte # 1.87 X10^3/ul (0.83-4.51); Lymphocyte % 30.4 % (19-41); Mean Corp Hgb Conc 32.2 g/dL (32-36); Mean Corpuscular Hgb 28.3 pg (27.0-32.0); Mean Corpuscular Volume 88.2 fL (81-99); Mean Platelet Vol. 10.4 fl (6.2-12.0); Monocyte% 8.1 % (0-10); NRBC Flagged by Analyzer 0 % (0-5); Neutrophil # 3.59 X10^3/uL (2.7-7.7); Neutrophil % 58.4 % (47-70); Platelet Count 269 K/mm3 (150-450); RBC Distribution Width CV 14.4 % (11.6-14.6); RBC Distribution Width SD 45.8 fl (35.1-43.9); Red Blood Count 4.48 M/mm3 (4.2-5.4); White Blood Count 6.2 K/mm3 (4.4-11.0)
[2024-01-05 13:31] LABS: ALB/GLOB Ratio 1.1 RATIO (0.9-2.4); AST(SGOT) 30 U/L (15-37); Alanine Aminotransfer ALT/SGPT 38 U/L (13-56); Albumin, Serum 3.6 g/dL (3.2-5.0); Alkaline Phosphatase 64 U/L (45-117); Anion Gap 6 (5-15); BUN 24 mg/dL (7-18); BUN/Creat Ratio 33.6 RATIO (10-20); Calcium,Total 8.8 mg/dL (8.5-10.1); Chloride 108 mmol/L (98-107); Creatinine, Serum 0.72 mg/dL (0.55-1.02); EST Glomerular Filtration Rate 87 mL/min (>60); Est Glom Filt Rate - Afr Amer 105 mL/min (>60); Globulin 3.3 g/dL (2.2-4.2); Glucose 96 mg/dL (74-106); Protein, Total 6.9 g/dL (6.4-8.2); Sodium Level 141 mmol/L (136-145)
== END | disposition home or self-care (01) ==
PROVIDERS: PCP Internal Medicine; Referring Provider Internal Medicine Rheumatology; Visit Provider Internal Medicine Rheumatology
DX: L40.59 Other psoriatic arthropathy (principal); L40.8 Other psoriasis; Z79.899 Other long term (current) drug therapy
CPT/HCPCS: 36415; 80053; 85025

== ENCOUNTER → 2024-02-02 | Outpatient (CLI) | payer MEDICARE, OTHER, SELFPAY ==
--- NOTE | 2024-02-02 07:58 | CT_ITS ---
CT LEFT LOWER EXTREMITY WITH 3-D IMAGING CLINICAL INDICATION: Unilateral primary osteoarthritis, left knee TECHNIQUE: Axial CT images of the LEFT lower extremity was performed without IV contrast material. Coronal and sagittal reformats as well as 3D reformats were provided. RADIATION DOSAGE (If Supplied By Facility): CTDIvol = ( 18.76 ) mGy, DLP = ( 1214.73 ) mGycm COMPARISON: No relevant prior comparison study available FINDINGS: Bones: Imaging of the left hip joint was obtained. Minimal joint space narrowing. No significant bony abnormality is seen. Imaging of the left knee joint was obtained. There is a marked degree of joint space narrowing involving the medial compartment of knee joint. Degenerative spur formation is seen along the medial distal femoral condyle. Moderate degree of joint space narrowing of the patellofemoral joint with anterior femoral degenerative spur. Small joint effusion. Imaging of the ankle joint was obtained. There is evidence of calcaneal spurs. Soft Tissues: Small joint effusion. The superficial soft tissues are unremarkable without evidence of edema, hematoma, or foreign body. CT/Extremity Lower without Contra IMPRESSION: Marked degree of joint space narrowing involving the medial compartment of the knee joint and moderate degree of joint space narrowing of the femoral patellar joint. Small joint effusion. Electronically Signed: Nicola Edmondson MD at 14:36 EDT ,
--- NOTE | 2024-02-02 07:59 | EKG12_ITS ---
Test Reason : PREOP Blood Pressure : / mmHG Vent. Rate : 061 BPM Atrial Rate : 061 BPM P-R Int : 154 ms QRS Dur : 092 ms QT Int : 412 ms P-R-T Axes : 040 036 020 degrees QTc Int : 414 ms Sinus rhythm with PREMATURE VENTRICULAR COMPLLEXIS WITH RETROGRADE CONDUCTION Otherwise normal ECG Confirmed by Tariq Hanks ([id number]), make up editor CAMRON RAMOS ([id number]) on 02/03/2024 7:19:52 AM Referred By: Elliott Dowell Confirmed By:Tariq Hanks
[2024-02-02 10:16] LABS: Absolute Lymphocyte Count 2.13 X10^3/uL (0.83-4.51); Absolute Neutrophil Count 4.3 X10^3/uL (2.0-7.7); Basophil# 0.07 X10^3/uL; Eosinophil# 0.14 X10^3/uL; Eosinophils% 1.9 % (0-5); Hematocrit 38.4 % (37-47); Hemoglobin 12.4 g/dL (12.0-15.0); Lymphocyte # 2.13 X10^3/ul (0.83-4.51); Lymphocyte % 29.5 % (19-41); Mean Corp Hgb Conc 32.3 g/dL (32-36); Mean Corpuscular Volume 89.7 fL (81-99); Mean Platelet Vol. 10.1 fl (6.2-12.0); Monocyte# 0.58 X10^3/uL; NRBC Flagged by Analyzer 0 % (0-5); Neutrophil # 4.28 X10^3/uL (2.7-7.7); Neutrophil % 59.3 % (47-70); Platelet Count 277 K/mm3 (150-450); RBC Distribution Width SD 48.3 fl (35.1-43.9); Red Blood Count 4.28 M/mm3 (4.2-5.4); White Blood Count 7.2 K/mm3 (4.4-11.0)
[2024-02-02 10:42] LABS: Albumin, Serum 3.5 g/dL (3.2-5.0); Anion Gap 4 (5-15); BUN 17 mg/dL (7-18); BUN/Creat Ratio 24.2 RATIO (10-20); Calcium,Total 8.9 mg/dL (8.5-10.1); Chloride 107 mmol/L (98-107); EST Glomerular Filtration Rate 89 mL/min (>60); Est Glom Filt Rate - Afr Amer 107 mL/min (>60); Glucose 90 mg/dL (74-106); Potassium 4.2 mmol/L (3.5-5.1); Sodium Level 141 mmol/L (136-145)
== END | disposition home or self-care (01) ==
PROVIDERS: PCP Internal Medicine; Referring Provider Specialist; Visit Provider Specialist
DX: Z01.810 Encounter for preprocedural cardiovascular examination (principal); M17.12 Unilateral primary osteoarthritis, left knee; M21.162 Varus deformity, not elsewhere classified, left knee
CPT/HCPCS: 36415; 73700; 80048; 82040; 85025; 93005

== ENCOUNTER → 2024-03-30 | Outpatient (CLI) | payer MEDICARE, OTHER, SELFPAY ==
[2024-03-30 09:35] LABS: Absolute Neutrophil Count 3.5 X10^3/uL (2.0-7.7); Basophil# 0.04 X10^3/uL; Basophil% 0.6 % (0-1); Eosinophil# 0.18 X10^3/uL; Eosinophils% 2.9 % (0-5); Hematocrit 42.1 % (37-47); Hemoglobin 13.6 g/dL (12.0-15.0); Lymphocyte % 31.7 % (19-41); Mean Corp Hgb Conc 32.3 g/dL (32-36); Mean Corpuscular Hgb 28.9 pg (27.0-32.0); Mean Corpuscular Volume 89.6 fL (81-99); Mean Platelet Vol. 9.9 fl (6.2-12.0); Monocyte# 0.56 X10^3/uL; Monocyte% 8.9 % (0-10); NRBC Flagged by Analyzer 0 % (0-5); Neutrophil # 3.51 X10^3/uL (2.7-7.7); Neutrophil % 55.6 % (47-70); Platelet Count 231 K/mm3 (150-450); RBC Distribution Width CV 13.5 % (11.6-14.6); RBC Distribution Width SD 44.4 fl (35.1-43.9); White Blood Count 6.3 K/mm3 (4.4-11.0)
[2024-03-30 09:59] LABS: AST(SGOT) 27 U/L (15-37); Alanine Aminotransfer ALT/SGPT 37 U/L (13-56); Albumin, Serum 3.7 g/dL (3.2-5.0); Alkaline Phosphatase 87 U/L (45-117); Anion Gap 5 (5-15); BUN 18 mg/dL (7-18); BUN/Creat Ratio 25.9 RATIO (10-20); Chloride 105 mmol/L (98-107); EST Glomerular Filtration Rate 90 mL/min (>60); Est Glom Filt Rate - Afr Amer 108 mL/min (>60); Globulin 3.8 g/dL (2.2-4.2); Glucose 96 mg/dL (74-106); Protein, Total 7.5 g/dL (6.4-8.2); Sodium Level 139 mmol/L (136-145)
== END | disposition home or self-care (01) ==
LOC: LAB 08:56
PROVIDERS: PCP Internal Medicine; Referring Provider Internal Medicine Rheumatology; Visit Provider Internal Medicine Rheumatology
DX: L40.59 Other psoriatic arthropathy (principal); Z79.899 Other long term (current) drug therapy; L40.8 Other psoriasis; M17.0 Bilateral primary osteoarthritis of knee; K76.0 Fatty (change of) liver, not elsewhere classified; G47.33 Obstructive sleep apnea (adult) (pediatric); M81.0 Age-related osteoporosis without current pathological fracture
CPT/HCPCS: 36415; 80053; 85025

== ENCOUNTER → 2024-06-30 | Outpatient (CLI) | payer MEDICARE, OTHER, SELFPAY ==
[2024-06-30 08:36] LABS: Absolute Lymphocyte Count 1.97 X10^3/uL (0.83-4.51); Absolute Neutrophil Count 3.7 X10^3/uL (2.0-7.7); Basophil# 0.05 X10^3/uL; Basophil% 0.8 % (0-1); Eosinophil# 0.16 X10^3/uL; Eosinophils% 2.5 % (0-5); Hematocrit 40.6 % (37-47); Hemoglobin 13.7 g/dL (12.0-15.0); Lymphocyte # 1.97 X10^3/ul (0.83-4.51); Lymphocyte % 30.9 % (19-41); Mean Corp Hgb Conc 33.7 g/dL (32-36); Mean Corpuscular Hgb 30.4 pg (27.0-32.0); Mean Platelet Vol. 10.1 fl (6.2-12.0); Monocyte# 0.51 X10^3/uL; NRBC Flagged by Analyzer 0 % (0-5); Neutrophil # 3.68 X10^3/uL (2.7-7.7); Neutrophil % 57.6 % (47-70); Platelet Count 243 K/mm3 (150-450); RBC Distribution Width CV 13.4 % (11.6-14.6); RBC Distribution Width SD 43.7 fl (35.1-43.9); Red Blood Count 4.51 M/mm3 (4.2-5.4); White Blood Count 6.4 K/mm3 (4.4-11.0)
[2024-06-30 09:24] LABS: ALB/GLOB Ratio 1.1 RATIO (0.9-2.4); AST(SGOT) 20 U/L (15-37); Alanine Aminotransfer ALT/SGPT 30 U/L (13-56); Albumin, Serum 3.5 g/dL (3.2-5.0); Alkaline Phosphatase 62 U/L (45-117); Anion Gap 5 (5-15); BUN 15 mg/dL (7-18); BUN/Creat Ratio 21.3 RATIO (10-20); Calcium,Total 8.5 mg/dL (8.5-10.1); Chloride 108 mmol/L (98-107); EST Glomerular Filtration Rate 88 mL/min (>60); Est Glom Filt Rate - Afr Amer 107 mL/min (>60); Globulin 3.2 g/dL (2.2-4.2); Glucose 98 mg/dL (74-106); Protein, Total 6.7 g/dL (6.4-8.2); Sodium Level 140 mmol/L (136-145)
== END | disposition home or self-care (01) ==
LOC: LAB 07:48
PROVIDERS: PCP Internal Medicine; Referring Provider Internal Medicine Rheumatology; Visit Provider Internal Medicine Rheumatology
DX: L40.59 Other psoriatic arthropathy (principal); Z79.899 Other long term (current) drug therapy; L40.8 Other psoriasis; M17.0 Bilateral primary osteoarthritis of knee
CPT/HCPCS: 36415; 80053; 85025

== ENCOUNTER → 2024-09-16 | Outpatient (CLI) | payer MEDICARE, OTHER, SELFPAY ==
--- NOTE | 2024-09-16 12:59 | ECHOD_ITS ---
Reason For Study: MURMUR Procedure This was a 2D Doppler, Color Flow transthoracic echocardiogram. Exam performed in department. Left Ventricle Normal LV size. The left ventricular ejection fraction is 70 %. Stage 1 diastolic dysfunction. No regional wall motion abnormalities noted. Right Ventricle Normal RV size. Normal systolic function. Atria Normal left atrium. Normal right atrium. Mitral Valve Normal mitral valve. Tricuspid Valve Normal tricuspid valve. Mild tricuspid valve insufficiency. Pulmonary artery systolic pressure is 32 mmHg. Aortic Valve Mild focal aortic valve calcification. Pulmonic Valve Normal pulmonic valve. Great Vessels Normal aortic root. The pulmonary artery is normal size. Normal inferior vena cava. Pericardium/Pleural No pericardial effusion. MMode/2D Measurements & Calculations LVIDd: 4.5 cm IVSd: 1.2 cm LVOT diam: 2.0 cm LVIDs: 2.7 cm LVPWd: 1.0 cm LVOT area: 3.0 cm2 RVDd: 3.7 cm FS: 38.9 % asc Aorta Diam: 3.3 cm LAV(MOD-bp): 47.9 ml LVAd ap4: 21.9 cm2 LAV(MOD-bp) Indexed: 24.5 ml/m2 LVLd ap4: 7.5 cm LAV(MOD-sp2): 52.3 ml EDV(MOD-sp4): 54.9 ml LAV(MOD-sp4): 39.1 ml EDV(sp4-el): 54.4 ml LVAs ap4: 9.9 cm2 LVLs ap4: 6.1 cm ESV(MOD-sp4): 15.5 ml ESV(sp4-el): 13.8 ml EF(MOD-sp4): 71.7 % EF(sp4-el): 74.6 % LVAd ap2: 24.8 cm2 SV(MOD-sp4): 39.4 ml SV(MOD-sp2): 50.3 ml LVLd ap2: 7.6 cm EDV(MOD-sp2): 67.6 ml EDV(sp2-el): 68.6 ml LVAs ap2: 10.7 cm2 LVLs ap2: 6.0 cm ESV(MOD-sp2): 17.4 ml ESV(sp2-el): 16.3 ml EF(MOD-sp2): 74.3 % SV(sp4-el): 40.6 ml Ao sinus diam: 3.[address] Junction: 2.5 cm LA dimension(2D): 4.1 cm LA A4 area: 14.6 cm2 RA A4 area: 11.9 cm2 TAPSE: 2.1 cm Time Measurements MV dec time: 0.17 sec Doppler Measurements & Calculations MV E max cj: 74.9 cm/sec Lat Peak E' Cj: 12.1 cm/sec Med Peak E' Cj: 7.7 cm/sec MV A max cj: 86.7 cm/sec E/E' lat: 6.2 E/E' med: 9.7 MV E/A: 0.86 MV dec slope: 451.2 cm/sec2 Ao V2 max: 173.9 cm/sec LV V1 max: 131.9 cm/sec Ao max P.1 mmHg LV V1 max P.0 mmHg Ao V2 mean: 117.3 cm/sec LV V1 mean P.4 mmHg Ao mean P.2 mmHg LV V1 mean: 85.7 cm/sec Ao V2 VTI: 36.8 cm LV V1 VTI: 26.2 cm AV (velocity ratio): 0.71 MAHESH(I,D): 2.2 cm2 MAHESH(V,D): 2.3 cm2 SV(LVOT): 79.7 ml PA V2 max: 100.5 cm/sec TR max cj: 270.9 cm/sec PA max PG (full): 2.6 mmHg TR max P.4 mmHg ECHO/Echo Complete Interpretation Summary Normal LV size. The left ventricular ejection fraction is 70 %. Stage 1 diastolic dysfunction. Mild tricuspid valve insufficiency. Ordering Physician: Buzz Rehman Referring Physician: Hi Retana M.D. Performed By: Sallie Rice RDCS
== END | disposition home or self-care (01) ==
LOC: CVS 12:59
PROVIDERS: PCP Internal Medicine; Referring Provider Nurse Practitioner Family; Visit Provider Nurse Practitioner Family
DX: R01.1 Cardiac murmur, unspecified (principal)
CPT/HCPCS: 93306

== ENCOUNTER → 2024-09-21 | Outpatient (CLI) | payer MEDICARE, OTHER, SELFPAY ==
[2024-09-21 10:08] LABS: Absolute Lymphocyte Count 1.51 X10^3/uL (0.83-4.51); Basophil# 0.03 X10^3/uL; Basophil% 0.6 % (0-1); Eosinophil# 0.09 X10^3/uL; Eosinophils% 1.8 % (0-5); Hematocrit 41.2 % (37-47); Hemoglobin 14.3 g/dL (12.0-15.0); Lymphocyte # 1.51 X10^3/ul (0.83-4.51); Lymphocyte % 29.8 % (19-41); Mean Corp Hgb Conc 34.7 g/dL (32-36); Mean Corpuscular Hgb 32.1 pg (27.0-32.0); Mean Corpuscular Volume 92.6 fL (81-99); Mean Platelet Vol. 10.1 fl (6.2-12.0); Monocyte# 0.39 X10^3/uL; Monocyte% 7.7 % (0-10); NRBC Flagged by Analyzer 0 % (0-5); Neutrophil # 3.03 X10^3/uL (2.7-7.7); Neutrophil % 59.7 % (47-70); Platelet Count 264 K/mm3 (150-450); RBC Distribution Width CV 12.6 % (11.6-14.6); RBC Distribution Width SD 42.4 fl (35.1-43.9); Red Blood Count 4.45 M/mm3 (4.2-5.4); White Blood Count 5.1 K/mm3 (4.4-11.0)
[2024-09-21 11:02] LABS: AST(SGOT) 25 U/L (15-37); Alanine Aminotransfer ALT/SGPT 34 U/L (13-56); Albumin, Serum 3.5 g/dL (3.2-5.0); Alkaline Phosphatase 65 U/L (45-117); Anion Gap 3 (5-15); BUN 17 mg/dL (7-18); BUN/Creat Ratio 24.2 RATIO (10-20); Bilirubin, Direct 0.09 mg/dL (0.00-0.30); Calcium,Total 9.1 mg/dL (8.5-10.1); Chloride 106 mmol/L (98-107); Cholesterol 202 mg/dL (200); EST Glomerular Filtration Rate 88 mL/min (>60); Est Glom Filt Rate - Afr Amer 107 mL/min (>60); Globulin 3.5 g/dL (2.2-4.2); Glucose 102 mg/dL (74-106); High Density Lipoprotein 63 mg/dL; Potassium 4.2 mmol/L (3.5-5.1); Sodium Level 139 mmol/L (136-145); Triglycerides 187 mg/dL; Very Low Density Lipoprotein 37 mg/dL (5-40)
== END | disposition home or self-care (01) ==
LOC: LAB 09:30
PROVIDERS: PCP Internal Medicine; Referring Provider Nurse Practitioner Family; Visit Provider Nurse Practitioner Family
DX: L40.59 Other psoriatic arthropathy (principal); M15.9 Polyosteoarthritis, unspecified; I10 Essential (primary) hypertension; E78.5 Hyperlipidemia, unspecified; Z79.899 Other long term (current) drug therapy
CPT/HCPCS: 80053; 80061; 82248; 85025

== ENCOUNTER → 2024-12-22 | Outpatient (CLI) | payer MEDICARE, OTHER, SELFPAY ==
[2024-12-22 09:17] LABS: Absolute Lymphocyte Count 1.71 X10^3/uL (0.83-4.51); Absolute Neutrophil Count 4.4 X10^3/uL (2.0-7.7); Basophil# 0.06 X10^3/uL; Basophil% 0.9 % (0-1); Eosinophils% 2.8 % (0-5); Hematocrit 40.4 % (37-47); Lymphocyte # 1.71 X10^3/ul (0.83-4.51); Lymphocyte % 24.3 % (19-41); Mean Corp Hgb Conc 34.7 g/dL (32-36); Mean Corpuscular Hgb 31.3 pg (27.0-32.0); Mean Corpuscular Volume 90.4 fL (81-99); Mean Platelet Vol. 10.2 fl (6.2-12.0); Monocyte# 0.65 X10^3/uL; Monocyte% 9.2 % (0-10); NRBC Flagged by Analyzer 0 % (0-5); Neutrophil # 4.41 X10^3/uL (2.7-7.7); Neutrophil % 62.5 % (47-70); Platelet Count 262 K/mm3 (150-450); RBC Distribution Width CV 12.8 % (11.6-14.6); RBC Distribution Width SD 41.5 fl (35.1-43.9); Red Blood Count 4.47 M/mm3 (4.2-5.4); White Blood Count 7.1 K/mm3 (4.4-11.0)
[2024-12-22 09:50] LABS: ALB/GLOB Ratio 0.9 RATIO (0.9-2.4); AST(SGOT) 22 U/L (15-37); Alanine Aminotransfer ALT/SGPT 27 U/L (13-56); Albumin, Serum 3.5 g/dL (3.2-5.0); Alkaline Phosphatase 69 U/L (45-117); Anion Gap 8 (5-15); BUN 15 mg/dL (7-18); Calcium,Total 8.9 mg/dL (8.5-10.1); Chloride 105 mmol/L (98-107); Creatinine, Serum 0.68 mg/dL (0.55-1.02); EST Glomerular Filtration Rate 91 mL/min (>60); Est Glom Filt Rate - Afr Amer 111 mL/min (>60); Globulin 3.7 g/dL (2.2-4.2); Glucose 101 mg/dL (74-106); Potassium 3.9 mmol/L (3.5-5.1); Protein, Total 7.2 g/dL (6.4-8.2); Sodium Level 140 mmol/L (136-145)
== END | disposition home or self-care (01) ==
LOC: LAB 08:39
PROVIDERS: PCP Internal Medicine; Referring Provider Internal Medicine Rheumatology; Visit Provider Internal Medicine Rheumatology
DX: L40.59 Other psoriatic arthropathy (principal); L40.8 Other psoriasis; K76.0 Fatty (change of) liver, not elsewhere classified; Z79.899 Other long term (current) drug therapy
CPT/HCPCS: 36415; 80053; 85025

== ENCOUNTER → 2025-03-15 | Outpatient (CLI) | payer MEDICARE, OTHER, SELFPAY ==
[2025-03-15 08:47] LABS: Absolute Lymphocyte Count 1.89 X10^3/uL (0.83-4.51); Absolute Neutrophil Count 3.2 X10^3/uL (2.0-7.7); Basophil# 0.04 X10^3/uL; Basophil% 0.7 % (0-1); Eosinophil# 0.14 X10^3/uL; Eosinophils% 2.5 % (0-5); Hematocrit 40.3 % (37-47); Hemoglobin 13.8 g/dL (12.0-15.0); Lymphocyte # 1.89 X10^3/ul (0.83-4.51); Lymphocyte % 33.6 % (19-41); Mean Corp Hgb Conc 34.2 g/dL (32-36); Mean Corpuscular Hgb 31.4 pg (27.0-32.0); Mean Corpuscular Volume 91.8 fL (81-99); Mean Platelet Vol. 10.1 fl (6.2-12.0); Monocyte# 0.37 X10^3/uL; Monocyte% 6.6 % (0-10); NRBC Flagged by Analyzer 0 % (0-5); Neutrophil # 3.17 X10^3/uL (2.7-7.7); Neutrophil % 56.2 % (47-70); Platelet Count 235 K/mm3 (150-450); RBC Distribution Width CV 12.4 % (11.6-14.6); RBC Distribution Width SD 41.2 fl (35.1-43.9); Red Blood Count 4.39 M/mm3 (4.2-5.4); White Blood Count 5.6 K/mm3 (4.4-11.0)
[2025-03-15 09:11] LABS: ALB/GLOB Ratio 1.5 RATIO (0.9-2.4); AST(SGOT) 29 U/L (<=31); Alanine Aminotransfer ALT/SGPT 26 U/L (<=34); Albumin, Serum 4.1 g/dL (3.4-4.8); Alkaline Phosphatase 63 U/L (35-104); Anion Gap 11 (5-15); BUN 17 mg/dL (4-19); BUN/Creat Ratio 25.8 RATIO (10-20); Calcium,Total 9.1 mg/dL (7.6-11.0); Carbon Dioxide 23.3 mmol/L (21.0-32.0); Chloride 106 mmol/L (98-108); Creatinine, Serum 0.68 mg/dL (0.70-1.20); EST Glomerular Filtration Rate 96 (>60); Globulin 2.6 g/dL (2.2-4.2); Glucose 99 mg/dL (70-99); Potassium 4.1 mmol/L (3.3-5.1); Protein, Total 6.7 g/dL (5.9-8.4); Sodium Level 140 mmol/L (133-145); Total Bilirubin 0.37 mg/dL (0.00-1.30)
== END | disposition home or self-care (01) ==
LOC: LAB 08:06
PROVIDERS: PCP Internal Medicine; Referring Provider Internal Medicine Rheumatology; Visit Provider Internal Medicine Rheumatology
DX: L40.59 Other psoriatic arthropathy (principal); Z79.899 Other long term (current) drug therapy
CPT/HCPCS: 36415; 80053; 85025

== ENCOUNTER → 2025-06-03 | Outpatient (CLI) | payer MEDICARE, OTHER, SELFPAY ==
--- NOTE | 2025-06-03 17:03 | MRI_ITS ---
PROCEDURE: SPINE LUMBAR (ROUTINE) 06/04/2025 REASON FOR EXAM: WORSENING PAIN, SPONDY TECHNIQUE: SPINE LUMBAR (ROUTINE) COMPARISON: 06-02-2025 FINDINGS: 1st degree anterolithesis L4 over L5 secondary to L4-L5 bilateral degenerative facet arthropathy. Ligamenta flava hypertrophy opposite L4-L5 adding to the central canal and neural foraminal stenosis. Straightened lumbar lordosis denoting myospasm No vertebral structural collapse, vertebral bodies or posterior neural elements fractures. Multilevel marginal osteophytic lipping and subchondral marrow degenerative signal/Modic II of the lumbar vertebral end plates. Variable degrees of reduced height and bright T2 signal of the intervertebral discs denoting their desiccation. T12-L1: There is no focal disc pathology, central canal stenosis or neural foraminal stenosis. L1-L2: There is no focal disc pathology, central canal stenosis or neural foraminal stenosis. L2-L3: There is no focal disc pathology, central canal stenosis or neural foraminal stenosis. L3-L4: a 1 mm diffuse disc bulge indenting the theca and encroaching upon the related neural exit foramina inducing marked exiting nerve roots compression. L4-L5: a 1 mm diffuse disc bulge along with facet arthropathy and hypertrophied ligamenta flava indenting the theca and encroaching upon the related neural exit foramina inducing marked exiting nerve roots compression. L5-S1: a 1 mm diffuse disc bulge indenting the theca and encroaching upon the related neural exit foramina inducing mild exiting nerve roots compression. The lower dorsal spinal cord, conus medullaris, and cauda equina nerve roots are unremarkable. No marrow infiltrative lesions. No paraspinal soft tissue abnormalities. Orthostatic edema of the back. MRI/Spine Lumbar (Routine) IMPRESSION: 1st degree anterolithesis L4. Straightened lumbar lordosis denoting myospasm Lumbar spondylosis with multilevel discs pathologies, facet arthropathy and hyp ertrophied ligamenta flava inducing variable degrees of spinal canal and neural exit pathways compromise Reading Location: [place] [id number]
== END | disposition home or self-care (01) ==
PROVIDERS: PCP Internal Medicine; Referring Provider Student in an Organized Health Care Education/Training Program; Visit Provider Student in an Organized Health Care Education/Training Program
DX: M51.362 Other intervertebral disc degeneration, lumbar region with discogenic back pain and lower extremity pain (principal); M43.16 Spondylolisthesis, lumbar region
CPT/HCPCS: 72148

== ENCOUNTER → 2025-06-06 | Outpatient (CLI) | payer MEDICARE, OTHER, SELFPAY ==
[2025-06-06 09:33] LABS: AST(SGOT) 25 U/L (<=31); Alanine Aminotransfer ALT/SGPT 20 U/L (<=34); Albumin, Serum 4.2 g/dL (3.4-4.8); Alkaline Phosphatase 64 U/L (35-104); Anion Gap 11 (5-15); BUN 19 mg/dL (4-19); BUN/Creat Ratio 28.1 RATIO (10-20); Calcium,Total 9.4 mg/dL (7.6-11.0); Carbon Dioxide 26.3 mmol/L (21.0-32.0); Chloride 103 mmol/L (98-108); Globulin 2.7 g/dL (2.2-4.2); Glucose 100 mg/dL (70-99); Potassium 4.0 mmol/L (3.3-5.1)
[2025-06-06 11:59] LABS: Hematocrit 38.0 % (37-47); Hemoglobin 12.5 g/dL (12.0-15.0); Immature Granulocytes Count 0.020 X10^3/uL (0.0-0.0); Mean Corp Hgb Conc 32.9 g/dL (32-36); Mean Corpuscular Volume 90.0 fL (81-99); Mean Platelet Vol. 10.2 fl (6.2-12.0); NRBC Flagged by Analyzer 0 % (0-5); Platelet Count 299 K/mm3 (150-450); RBC Distribution Width CV 13.6 % (11.6-14.6); RBC Distribution Width SD 44.2 fl (35.1-43.9); Red Blood Count 4.22 M/mm3 (4.2-5.4); White Blood Count 5.9 K/mm3 (4.4-11.0)
== END | disposition home or self-care (01) ==
LOC: LAB 08:15
PROVIDERS: PCP Internal Medicine; Referring Provider Internal Medicine Rheumatology; Visit Provider Internal Medicine Rheumatology
DX: L40.59 Other psoriatic arthropathy (principal); Z79.899 Other long term (current) drug therapy
CPT/HCPCS: 36415; 80053; 85025

== ENCOUNTER → 2025-09-01 | Outpatient (CLI) | payer MEDICARE, OTHER, SELFPAY ==
[2025-09-01 09:39] LABS: Hematocrit 41.1 % (37-47); Hemoglobin 13.9 g/dL (12.0-15.0); Immature Granulocytes Count 0.010 X10^3/uL (0.0-0.0); Mean Corp Hgb Conc 33.8 g/dL (32-36); Mean Corpuscular Volume 90.5 fL (81-99); Mean Platelet Vol. 10.2 fl (6.2-12.0); NRBC Flagged by Analyzer 0 % (0-5); Platelet Count 246 K/mm3 (150-450); RBC Distribution Width CV 13.8 % (11.6-14.6); RBC Distribution Width SD 46.0 fl (35.1-43.9); Red Blood Count 4.54 M/mm3 (4.2-5.4); White Blood Count 6.3 K/mm3 (4.4-11.0)
[2025-09-01 11:44] LABS: AST(SGOT) 26 U/L (<=31); Alanine Aminotransfer ALT/SGPT 25 U/L (<=34); Albumin, Serum 4.1 g/dL (3.4-4.8); Alkaline Phosphatase 56 U/L (35-104); Anion Gap 12 (5-15); BUN 20 mg/dL (4-19); BUN/Creat Ratio 35.9 RATIO (10-20); Calcium,Total 8.8 mg/dL (7.6-11.0); Carbon Dioxide 23.5 mmol/L (21.0-32.0); Chloride 106 mmol/L (98-108); Globulin 2.6 g/dL (2.2-4.2); Glucose 99 mg/dL (70-99); Potassium 3.9 mmol/L (3.3-5.1)
== END | disposition home or self-care (01) ==
LOC: LAB 08:24
PROVIDERS: PCP Internal Medicine; Referring Provider Internal Medicine Rheumatology; Visit Provider Internal Medicine Rheumatology
DX: L40.59 Other psoriatic arthropathy (principal); Z79.899 Other long term (current) drug therapy
CPT/HCPCS: 36415; 80053; 85025

== ENCOUNTER → 2025-11-01 | Outpatient (CLI) | payer MEDICARE, OTHER, SELFPAY ==
[2025-11-01 11:30] LABS: Anion Gap 9 (5-15); BUN 19 mg/dL (4-19); BUN/Creat Ratio 25.4 RATIO (10-20); Calcium,Total 9.5 mg/dL (7.6-11.0); Carbon Dioxide 29.5 mmol/L (21.0-32.0); Chloride 104 mmol/L (98-108); Cholesterol 213 mg/dL (<=200); Glucose 103 mg/dL (70-99); Low Density Lipoprotein Calc. 129 mg/dL; Potassium 4.5 mmol/L (3.3-5.1); Triglycerides 137 mg/dL; Very Low Density Lipoprotein 27 mg/dL (5-40); cholesterol:hdl ratio screen 3.54
== END | disposition home or self-care (01) ==
LOC: LAB 09:27
PROVIDERS: PCP Internal Medicine; Referring Provider Internal Medicine Cardiovascular Disease; Visit Provider Internal Medicine Cardiovascular Disease
DX: E78.5 Hyperlipidemia, unspecified (principal)
CPT/HCPCS: 36415; 80048; 80061; 84443